=== PATIENT | female | born 1945 | race Caucasian/White ===

== ENCOUNTER 2022-09-14 17:12 | Emergency (ER) | payer MEDICARE, MEDICAID, SELFPAY ==
[2022-09-14] VITALS (30 sets, daily range): BP systolic 147–205; BP diastolic 70–96; PULSE 53–88; RESP 13–40; TEMP 36.3; O2SAT 93–100; BMI 23.1
--- NOTE | 2022-09-14 17:26 | DI.CT.S_ITS ---
PROCEDURE: CT HEAD/BRAIN WO CON INDICATIONS: headache, htn and loss vision in left eye one month ago. TECHNIQUE: Noncontrast 4.5 mm thick angled axial sections acquired from the foramen magnum to the vertex, with coronal and sagittal reformats. For radiation dose reduction, the following was used: automated exposure control, adjustment of mA and/or kV according to patient size. COMPARISON: None. FINDINGS: Image quality: Excellent. CSF spaces: Basal cisterns are patent. No extra-axial fluid collections. Ventricles are normal in size and shape. Brain: No midline shift. No intracranial masses or hemorrhage. Cherry-white matter interface is normal. Skull and face: Calvarium and visualized facial bones are intact, without suspicious lesions. Sinuses: Visualized sinuses and mastoids are clear. IMPRESSION: Atrophy and chronic ischemic change without hemorrhage or mass effect Increased irregular density in the left orbital globe may reflect vitreous hemorrhage, calcification or less likely mass lesion. Consider follow-up MR with contrast Approved by: Jose Hickey M.D. on 09/14/2022 at 17:49
[2022-09-14 18:04] LABS: Add Manual Diff / Slide Review NO; Basophils Absolute Auto 0 /uL (0-100); Basophils Percent Auto 0.3 % (0-2); Eosinophils Absolute Auto 0 /uL (0-450); Eosinophils Percent Auto 0.2 % (2-4); Hematocrit 40.3 % (36-46); Hemoglobin 13.9 g/dL (12.0-16.0); Lymphocytes Absolute Auto 600 /uL (1100-4500); Lymphocytes Percent Auto 5.7 % (25-40); Mean Corpuscular HGB Conc 34.4 % (30-36); Mean Corpuscular Hemoglobin 30.6 PG (26-34); Monocytes Absolute Auto 300 /uL (0-900); Neutrophils Absolute Auto 9000 /uL (1500-7000); Neutrophils Percent Auto 90.8 % (50-75); Platelet Count 400 X10^3/uL (150-400); Red Blood Cell Count 4.53 X10^6/uL (4.0-5.2); Red Cell Distribution Width 13.9 % (11.6-14.8); White Blood Cell Count 9.9 X10^3/uL (4.5-11.0)
--- NOTE | 2022-09-14 18:15 | ED_ITS ---
HPI - Headache General Chief Complaint: Headache Stated Complaint: Migraine Time Seen by Provider: 09/14/22 17:30 Source: patient Mode of arrival: Wheelchair Limitations: no limitations History of Present Illness HPI Narrative: This is a 76-year-old female with no reported medical issues but has not seen a doctor in many years, patient states she had slow onset of headache today started before 12 30 this morning she describes it as being above her left eye in the frontal area, does not radiate elsewhere. She does note she lost vision in her left eye about a month ago she states it is just lack she really has no vision at all. She states she sometimes has pretty colors in her right eye with her headache today. She denies syncope falls or trauma. She does wear glasses. She is not had prior vision issues. She will sort of tingling all over, she does not feel weak one-sided versus the other. No fevers or chills. No difficulty with speech. No chest pain, no shortness of breath she is had nausea but no vomiting, no diarrhea constipation. Patient states no vertigo. She does note she has chronic swelling in her lower extremities typically worse in the summer. She also has a spot on her arm that has been present ingrowing for some time sometimes bleeds. Related Data Home Medications Medication Instructions Recorded Confirmed No Known Home Medications 09/14/22 09/14/22 Allergies Allergy/AdvReac Type Severity Reaction Status Date / Time No Known Drug Allergies Allergy Verified 09/14/22 17:15 Review of Systems Review of Systems ROS Unobtainable: All systems reviewed & are unremarkable except as noted in HPI and below Patient History Social History Smoking Status: Never smoker Smoking Status: Never smoker Substance Use Type: does not use Exam Narrative Exam Narrative: GEN: Well-nourished elderly female, alert and oriented x 3, patient appears to be in moderate distress. HEENT: Atraumatic, pupils are equal round reactive to light, extraocular movements are intact, patient does not have any appreciation of light were fingers with left eye, nares are clear, TMs are clear with no fluid, there is no conjunctival pallor. Throat is clear without any exudates, erythema, tonsillar enlargement or uvular deviation, mild facial droop on the left. Visual acuity: right [20/20], left no vision without correction. IOP: Right 16 and 18 mm Hg on repeat, Left ERRor x 3 patient was very cooperative with exam. General: no globe trauma Eyelids: normal inspection. Conjunctiva/Sclera: normal inspection Corneas: normal inspection, examined with fluroscein on left, minimal uptake.. EOM: intact, no palsy/entrapment Pupils: PERRL on right, pupils are equal bilaterally I do not appreciate any reaction with direct examination with light on the left and a little difficult to tell but do not appreciate any reaction when light is shined in the right eye no reaction appreciated in the left. Anterior Chambers: normal inspection, no hypema HEART: Regular rate and rhythm without murmur, clicks, rubs. Pulses are equal in upper and lower extremities. Bilateral lower extremity edema. LUNGS:Lungs clear to auscultation, no wheezes, rales, crackles, chest moves symmetrically, no tachypnea accessory muscle use ABD:bowel sounds normal, soft, non-tender, no guarding, rebound, rigidity, no masses noted, no hepatosplenomegaly :No CVA tenderness MSCL: Non-tender, no muscle atrophy, muscles strength 5/5 upper and lower ex tremities, full range of motion. Patient has a 4 x 2 cm raised mass on her left forearm with mild amount of bleeding that is pinkish tissue slightly pedunculated NEURO:CN 2-12 intact, sensation normal, reflexes 2/4 upper and lower extremities. finger nose finger test normal, heel ogden test normal. Initial Vital Signs Initial Vital Signs: Vital Signs Temperature 97.3 F L 09/14/22 17:15 Pulse Rate 88 09/14/22 17:15 Respiratory Rate 18 09/14/22 17:15 Blood Pressure 205/96 H 09/14/22 17:15 Pulse Oximetry 100 09/14/22 17:15 Oxygen Delivery Method Room Air 09/14/22 17:15 Scores NIH Stroke Scale Level of Conciousness: Alert, keenly responsive Ask month/age: Answers both questions correctly. Open/close eyes, close hand: Performs both tasks correctly Best gaze horizontal: Normal Visual marvin: Complete hemianopia (left eye complete vision loss.) Facial palsy: Minor paralysis, flattened nasolabial fold, asymmetry on smiling Left arm drift: No drift for full 10 sec Right arm drift: No drift for full 10 sec Left leg drift: No drift for full 5 sec Right leg drift: No drift for full 5 sec Limb ataxia: Absent Sensory on face/arms/legs: Normal, no sensory loss Best language: No aphasia, normal Dysarthria: Normal Extinction or inattention: No abnormality Total NIH Stroke scale score: 3 Course Orders Ordered: ED Orders 09/14/22 16:57 COVID19 -Nasal RAPID Stat 09/14/22 17:26 CT head/brain wo con Stat 09/14/22 17:53 Complete Blood Count AUTO DIFF Stat 09/14/22 18:00 EKG-12 Lead Stat 09/14/22 18:08 Comprehensive Metabolic Panel Stat Lipase Stat Magnesium Stat NT-proBNP (BNP-Adult 18+) Stat PTT Partial Thromboplastin Gabriel Stat Prothrombin Time INR Stat Troponin & CK Cardiac Panel Stat 09/14/22 18:29 Chest [XR chest 1V] Stat 09/14/22 18:53 MR head/brain w con Stat 09/14/22 19:58 CT orbit BI wo con Stat 09/14/22 21:37 UA Complete [Urinalysis and Microscopic] Stat Urine Culture Stat Urine Drug Screen, Rapid Stat Brimonidine Tartrate (Brimonidine 0.2% Ophth 5 Ml) 1 drops EYE-LEFT Q3HR [facility] Last Admin: 09/14/22 22:36 Dose: 1 drops Documented By: Admin: 09/14/22 22:01 Dose: 1 drops Documented By: Admin: 09/14/22 20:52 Dose: 1 drops Documented By: Dorzolamide/Timolol (Dorzolamide/Timolol Ophth 10 Ml) 1 drops EYE-LEFT BID [facility] Last Admin: 09/14/22 22:13 Dose: 1 drops Documented By: Admin: 09/14/22 21:18 Dose: 1 drops Documented By: Admin: 09/14/22 20:43 Dose: 1 drops Documented By: Latanoprost (Latanoprost 0.005% Ophth 2.5 Ml) 1 drops EYE-LEFT BEDTIME [facility] Last Admin: 09/14/22 22:24 Dose: 1 drops Documented By: Admin: 09/14/22 21:39 Dose: 1 drops Documented By: Admin: 09/14/22 20:30 Dose: 1 drops Documented By: Discontinued Medications Acetazolamide (Acetazolamide 250 Mg Tablet) 500 mg PO NOW ONE Stop: 09/14/22 20:02 Last Admin: 09/14/22 20:30 Dose: 500 mg Documented By: Brimonidine Tartrate (Brimonidine 0.2% Ophth 5 Ml) 1 drops EYE-BOTH Q3HR [facility] Fluorescein Sodium (Fluorescein 1 Mg Strip) 1 mg EYE-BOTH NOW ONE Stop: 09/14/22 19:33 Last Admin: 09/14/22 19:44 Dose: 1 mg Documented By: Metoclopramide HCl (Metoclopramide 10 Mg/2 Ml Inj) 10 mg IV NOW ONE Stop: 09/14/22 19:20 Last Admin: 09/14/22 19:25 Dose: 10 mg Documented By: RLS Morphine Sulfate (Morphine 4 Mg/Ml Inj) 4 mg IV NOW ONE Stop: 09/14/22 18:30 Last Admin: 09/14/22 18:35 Dose: 4 mg Documented By: SPF Morphine Sulfate (Morphine 4 Mg/Ml Inj) 4 mg IV NOW ONE Stop: 09/14/22 19:54 Last Admin: 09/14/22 19:58 Dose: 4 mg Documented By: Ondansetron HCl (Ondansetron 4 Mg Odt) 4 mg PO NOW ONE Stop: 09/14/22 17:51 Last Admin: 09/14/22 18:18 Dose: 4 mg Documented By: SPF Ondansetron HCl (Ondansetron 4 Mg/2 Ml Inj) 4 mg IV NOW ONE Stop: 09/14/22 18:29 Last Admin: 09/14/22 18:36 Dose: 4 mg Documented By: SPF Proparacaine HCl (Proparacaine 0.5% Ophth [place]) 1 drops EYE-BOTH NOW ONE Stop: 09/14/22 19:33 Last Admin: 09/14/22 19:44 Dose: 1 drop Documented By: Vital Signs Vital signs: Vital Signs - 8 hr 09/14/22 17:15 09/14/22 17:57 09/14/22 17:57 Temperature 97.3 F L Pulse Rate 88 79 Respiratory Rate 18 40 H Blood Pressure 205/96 H 183/88 H Pulse Oximetry 100 99 Oxygen Delivery Method Room Air 09/14/22 18:00 09/14/22 18:00 09/14/22 18:15 Temperature Pulse Rate 77 77 Respiratory Rate 28 H Blood Pressure 181/94 H Pulse Oximetry 98 100 Oxygen Delivery Method Room Air 09/14/22 18:30 09/14/22 18:30 09/14/22 18:45 Temperature Pulse Rate 78 80 Respiratory Rate 28 H Blood Pressure 204/93 H Pulse Oximetry 99 100 Oxygen Delivery Method 09/14/22 18:52 09/14/22 18:52 09/14/22 19:00 Temperature Pulse Rate 72 Respiratory Rate 26 H Blood Pressure 198/85 H 178/85 H Pulse Oximetry 99 Oxygen Delivery Method 09/14/22 19:00 09/14/22 19:15 09/14/22 19:30 Temperature Pulse Rate 72 70 Respiratory Rate 24 Blood Pressure 172/83 H Pulse Oximetry 99 98 Oxygen Delivery Method Room Air 09/14/22 19:30 09/14/22 19:45 09/14/22 20:00 Temperature Pulse Rate 68 66 Respiratory Rate 13 Blood Pressure 182/78 H Pulse Oximetry 97 98 Oxygen Delivery Method 09/14/22 20:00 09/14/22 20:17 09/14/22 20:18 Temperature Pulse Rate 73 72 Respiratory Rate 13 Blood Pressure 167/87 H Pulse Oximetry 96 Oxygen Delivery Method 09/14/22 20:18 09/14/22 20:30 09/14/22 20:45 Temperature Pulse Rate 69 67 69 Respiratory Rate 19 23 22 Blood Pressure Pulse Oximetry 93 95 95 Oxygen Delivery Method 09/14/22 21:00 09/14/22 21:15 09/14/22 21:36 Temperature Pulse Rate 67 73 77 Respiratory Rate 15 Blood Pressure Pulse Oximetry 96 97 99 Oxygen Delivery Method 09/14/22 21:37 09/14/22 21:37 09/14/22 21:45 Temperature Pulse Rate 64 62 Respiratory Rate 16 Blood Pressure 193/78 H Pulse Oximetry 97 97 Oxygen Delivery Method 09/14/22 22:00 09/14/22 22:01 09/14/22 22:01 Temperature Pulse Rate 62 61 Respiratory Rate Blood Pressure 191/81 H Pulse Oximetry 97 95 Oxygen Delivery Method 09/14/22 22:15 09/14/22 22:30 09/14/22 22:31 Temperature Pulse Rate 64 59 L Respiratory Rate 17 19 Blood Pressure 171/78 H Pulse Oximetry 96 95 Oxygen Delivery Method 09/14/22 22:31 09/14/22 22:45 09/14/22 23:00 Temperature Pulse Rate 64 57 L 61 Respiratory Rate 24 24 Blood Pressure Pulse Oximetry 95 95 95 Oxygen Delivery Method 09/14/22 23:01 09/14/22 23:01 09/14/22 23:15 Temperature Pulse Rate 57 L 53 L Respiratory Rate Blood Pressure 147/70 H Pulse Oximetry 96 95 Oxygen Delivery Method MDM - Headache Lab Data 09/14/22 17:53 09/14/22 18:08 Labs: Lab Results 09/14/22 09/14/22 09/14/22 Range/Units 16:57 17:53 18:08 WBC 9.9 (4.5-11.0) X10^3/uL RBC 4.53 (4.0-5.2) X10^6/uL Hgb 13.9 (12.0-16.0) g/dL Hct 40.3 (36-46) % MCV 89.0 (80-100) fL MCH 30.6 (26-34) PG MCHC 34.4 (30-36) % RDW 13.9 (11.6-14.8) % Plt Count 400 (150-400) X10^3/uL Neut % (Auto) 90.8 H (50-75) % Lymph % (Auto) 5.7 L (25-40) % [place] % (Auto) 3.0 (3-14) % Eos % (Auto) 0.2 L (2-4) % Baso % (Auto) 0.3 (0-2) % Neut # (Auto) 9000 H (0175-6287) /uL Lymph # (Auto) 600 L (6039-6079) /uL [place] # (Auto) 300 (0-900) /uL Eos # (Auto) 0 (0-450) /uL Baso # (Auto) 0 (0-100) /uL PT 12.7 (10.1-12.7) SECONDS INR 1.1 (0.9-1.3) APTT 30 (26-36) SECONDS Sodium (137-145) mmol/L Potassium (3.4-5.1) mmol/L Chloride (98-107) mmol/L Carbon Dioxide (22-32) mmol/L BUN (7-17) mg/dL Creatinine (0.52-1.04) mg/dL Estimated GFR (>60) mL/min BUN/Creatinine Ratio (6-22) Glucose (80-110) mg/dL Calcium (8.4-10.2) mg/dL Magnesium (1.6-2.3) mg/dL Total Bilirubin (0.2-1.3) mg/dL AST (14-36) IU/L ALT (<35) IU/L Alkaline Phosphatase (38-126) U/L Total Creatine Kinase (30-135) U/L Troponin I (0.01-0.034) ng/mL NT-Pro-B Natriuret Pep (<125) pg/mL Total Protein (6.3-8.2) g/dL Albumin (3.5-5.0) g/dL Globulin (1.7-4.1) g/dL Albumin/Globulin Ratio (1.0-2.8) Lipase (23-300) U/L Urine Color Urine Appearance Urine pH (4.5-8.0) Ur Specific Rhodes (1.000-1.035) Urine Protein (Negative) Urine Glucose (UA) (Negative) g/dL Urine Ketones (NEGATIVE) Urine Occult Blood (Negative) Urine Nitrate (Negative) Urine Bilirubin (NEGATIVE) Urine Urobilinogen (0.2) E.U./dL Ur Leukocyte Esterase (NEGATIVE) Urine RBC (0-5/HPF) Urine WBC (0-5/HPF) Ur Squamous Epith Cells (0-5/HPF) Urine Bacteria (None) Ur Culture Indicated? U Opiates 300ng/mL cut (Negative) Ur Oxycodone Screen (Negative) Urine Methadone Screen (Negative) Ur Barbiturates Screen (Negative) U Tricyclic Antidepress (Negative) Ur Phencyclidine Scrn (Negative) Ur Amphetamines Screen (Negative) U Methamphetamines Scrn (Negative) Ur MDMA Scrn (Ecstasy) (Negative) U Benzodiazepines Scrn (Negative) Urine Cocaine Screen (Negative) U Marijuana (THC) Screen (Negative) SARS-CoV-2 (PCR) Negative (Negative) 09/14/22 09/14/22 09/14/22 Range/Units 18:08 18:08 21:37 WBC (4.5-11.0) X10^3/uL RBC (4.0-5.2) X10^6/uL Hgb (12.0-16.0) g/dL Hct (36-46) % MCV (80-100) fL MCH (26-34) PG MCHC (30-36) % RDW (11.6-14.8) % Plt Count (150-400) X10^3/uL Neut % (Auto) (50-75) % Lymph % (Auto) (25-40) % [place] % (Auto) (3-14) % Eos % (Auto) (2-4) % Baso % (Auto) (0-2) % Neut # (Auto) (4219-8118) /uL Lymph # (Auto) (1445-2846) /uL [place] # (Auto) (0-900) /uL Eos # (Auto) (0-450) /uL Baso # (Auto) (0-100) /uL PT (10.1-12.7) SECONDS INR (0.9-1.3) APTT (26-36) SECONDS Sodium 132 L (137-145) mmol/L Potassium 3.6 (3.4-5.1) mmol/L Chloride 98 (98-107) mmol/L Carbon Dioxide 22 (22-32) mmol/L BUN 20 H (7-17) mg/dL Creatinine 0.52 (0.52-1.04) mg/dL Estimated GFR > 60 (>60) mL/min BUN/Creatinine Ratio 38.5 H (6-22) Glucose 151 H (80-110) mg/dL Calcium 9.3 (8.4-10.2) mg/dL Magnesium 1.7 (1.6-2.3) mg/dL Total Bilirubin 0.7 (0.2-1.3) mg/dL AST 22 (14-36) IU/L ALT 19 (<35) IU/L Alkaline Phosphatase 130 H (38-126) U/L Total Creatine Kinase 43 (30-135) U/L Troponin I < 0.012 (0.01-0.034) ng/mL NT-Pro-B Natriuret Pep 309 H (<125) pg/mL Total Protein 7.9 (6.3-8.2) g/dL Albumin 4.4 (3.5-5.0) g/dL Globulin 3.5 (1.7-4.1) g/dL Albumin/Globulin Ratio 1.3 (1.0-2.8) Lipase 78 (23-300) U/L Urine Color Urine Appearance Urine pH (4.5-8.0) Ur Specific [place] (1.000-1.035) Urine Protein (Negative) Urine Glucose (UA) (Negative) g/dL Urine Ketones (NEGATIVE) Urine Occult Blood (Negative) Urine Nitrate (Negative) Urine Bilirubin (NEGATIVE) Urine Urobilinogen (0.2) E.U./dL Ur Leukocyte Esterase (NEGATIVE) Urine RBC (0-5/HPF) Urine WBC (0-5/HPF) Ur Squamous Epith Cells (0-5/HPF) Urine Bacteria (None) Ur Culture Indicated? U Opiates 300ng/mL cut Positive H (Negative) Ur Oxycodone Screen Negative (Negative) Urine Methadone Screen Negative (Negative) Ur Barbiturates Screen Negative (Negative) U Tricyclic Antidepress Negative (Negative) Ur Phencyclidine Scrn Negative (Negative) Ur Amphetamines Screen Negative (Negative) U Methamphetamines Scrn Negative (Negative) Ur MDMA Scrn (Ecstasy) Negative (Negative) U Benzodiazepines Scrn Negative (Negative) Urine Cocaine Screen Negative (Negative) U Marijuana (THC) Screen Negative (Negative) SARS-CoV-2 (PCR) (Negative) 09/14/22 Range/Units 21:37 WBC (4.5-11.0) X10^3/uL RBC (4.0-5.2) X10^6/uL Hgb (12.0-16.0) g/dL Hct (36-46) % MCV (80-100) fL MCH (26-34) PG MCHC (30-36) % RDW (11.6-14.8) % Plt Count (150-400) X10^3/uL Neut % (Auto) (50-75) % Lymph % (Auto) (25-40) % [place] % (Auto) (3-14) % Eos % (Auto) (2-4) % Baso % (Auto) (0-2) % Neut # (Auto) (0455-0104) /uL Lymph # (Auto) (1122-1214) /uL [place] # (Auto) (0-900) /uL Eos # (Auto) (0-450) /uL Baso # (Auto) (0-100) /uL PT (10.1-12.7) SECONDS INR (0.9-1.3) APTT (26-36) SECONDS Sodium (137-145) mmol/L Potassium (3.4-5.1) mmol/L Chloride (98-107) mmol/L Carbon Dioxide (22-32) mmol/L BUN (7-17) mg/dL Creatinine (0.52-1.04) mg/dL Estimated GFR (>60) mL/min BUN/Creatinine Ratio (6-22) Glucose (80-110) mg/dL Calcium (8.4-10.2) mg/dL Magnesium (1.6-2.3) mg/dL Total Bilirubin (0.2-1.3) mg/dL AST (14-36) IU/L ALT (<35) IU/L Alkaline Phosphatase (38-126) U/L Total Creatine Kinase (30-135) U/L Troponin I (0.01-0.034) ng/mL NT-Pro-B Natriuret Pep (<125) pg/mL Total Protein (6.3-8.2) g/dL Albumin (3.5-5.0) g/dL Globulin (1.7-4.1) g/dL Albumin/Globulin Ratio (1.0-2.8) Lipase (23-300) U/L Urine Color Yellow Urine Appearance Cloudy Urine pH 6.5 (4.5-8.0) Ur Specific [place] 1.025 (1.000-1.035) Urine Protein Trace H (Negative) Urine Glucose (UA) Negative (Negative) g/dL Urine Ketones 2+ H (NEGATIVE) Urine Occult Blood 3+ H (Negative) Urine Nitrate Positive H (Negative) Urine Bilirubin Negative (NEGATIVE) Urine Urobilinogen 0.2 (0.2) E.U./dL Ur Leukocyte Esterase Negative (NEGATIVE) Urine RBC 5-10/hpf H (0-5/HPF) Urine WBC 1-5/hpf (0-5/HPF) Ur Squamous Epith Cells 0-1 /hpf (0-5/HPF) Urine Bacteria Many (>30) H (None) Ur Culture Indicated? Specimen cultured U Opiates 300ng/mL cut (Negative) Ur Oxycodone Screen (Negative) Urine Methadone Screen (Negative) Ur Barbiturates Screen (Negative) U Tricyclic Antidepress (Negative) Ur Phencyclidine Scrn (Negative) Ur Amphetamines Screen (Negative) U Methamphetamines Scrn (Negative) Ur MDMA Scrn (Ecstasy) (Negative) U Benzodiazepines Scrn (Negative) Urine Cocaine Screen (Negative) U Marijuana (THC) Screen (Negative) SARS-CoV-2 (PCR) (Negative) Imaging Data CT scan - head: Radiologist's Impression: [address] [address] [address] Scan Report Signed Patient: Brandi Alvarez MR#: [id number] : 1945 Acct:[id number] Age/Sex: 76 / F Date of Service: 09/14/22 Loc: ED Accession Number: [id number] ?? Procedure: CT head/brain wo con Ordering Provider: Lior Patterson D.O. PROCEDURE:? CT HEAD/BRAIN WO CON ? INDICATIONS:? headache, htn and loss vision in left eye one month ago. ? TECHNIQUE:? Noncontrast 4.5 mm thick angled axial sections acquired from the foramen magnum to the vertex, with coronal and sagittal reformats.? For radiation dose reduction, the following was used:? automated exposure control, adjustment of mA and/or kV according to patient size.? ? COMPARISON:? None. ? FINDINGS:? Image quality:? Excellent.? ? CSF spaces:? Basal cisterns are patent.? No extra-axial fluid collections.? Ventricles are normal in size and shape.? ? Brain:? No midline shift.? No intracranial masses or hemorrhage.? Cherry-white matter interface is normal.? ? Skull and face:? Calvarium and visualized facial bones are intact, without suspicious lesions.? ? Sinuses:? Visualized sinuses and mastoids are clear.? ? IMPRESSION:? Atrophy and chronic ischemic change without hemorrhage or mass effect ? Increased irregular density in the left orbital globe may reflect vitreous hemorrhage, calcification or less likely mass lesion.? Consider follow-up MR with contrast ? ? ? Approved by: Jose Hickey M.D. on 09/14/2022 at 17:49? CT orbits: Radiologist's Impression: Close Orbit CT (Signed) Radha Christensen - 09/14/22 Chest X-Ray (Signed) Jose Hickey - 09/14/[address] (Signed) Jose Hickey - 09/14/22 Launch?Image [address] [address] [address] Scan Report Signed Patient: Brandi Alvarez MR#: [id number] : 1945 Acct:[id number] Age/Sex: 76 / F Date of Service: 09/14/22 Loc: ED Accession Number: [id number] ?? Procedure: CT orbit BI wo con Ordering Provider: Jaye Payton D.O. PROCEDURE:? CT ORBIT BI WO CON ? INDICATIONS:? left eye ? TECHNIQUE:? Noncontrast 2.5 mm axial images acquired through the orbits, with coronal and sagittal reformats.? For radiation dose reduction, the following was used:? automated exposure control, adjustment of mA and/or kV according to patient size.? ? COMPARISON:? [facility], CT, CT HEAD/BRAIN WO CON, 09/14/2022, 17:39. ? FINDINGS:? Image quality:? Excellent.? ? Orbits:? As identified on prior exam, the left globe demonstrates a somewhat heterogeneous appearance with focus increased density in the posterior aspect.? There is no proptosis.? Lenses unchanged in position.? No metallic foreign bodies.? The optic nerves are normal in size.? No retrobulbar masses or fat abnormalities.? The extra-ocular muscles are normal and symmetrical in appearance.? Lacrimal glands are normal in size.? Optic chiasm is normal.? ? Intracranial:? Visualized portions of the cerebral hemispheres, brainstem, and spinal cord are normal.? ? Bones and sinuses:? Visualized calvarium and facial bones appear intact.? Visualized sinuses and mastoids are clear.? ? IMPRESSION:? ? Unchanged appearance of hyperdensity within the left globe as above.? Differential remains unchanged at possible vitreous hemorrhage, calcification or less likely mass lesion. ? ? Dictated by: Radha Christensen M.D. on 09/14/2022 at 20:34 ? ? Approved by: Radha Christensen M.D. on 09/14/2022 at 20:35?? ECG Data Attestation: I personally reviewed and interpreted this ECG as follows: Prior ECG tracings: not available for review Interpretation: Sinus rhythm rate of 78 IA 142 QRS 84 and QTC 476. No acute ST changes. MDM Narrative Medical decision making narrative: 76-year-old female with history of 1 day of acute but gradual onset left frontal headache nausea and vomiting with 1 month of left eye vision loss that she describes as initially gradual onset but complete loss she describes it being mostly black. She occasionally has some flashes of color but no real light perception. Patient states no trauma no injuries, no pain in the eye is reported. She has not been having frequent headaches. CT of the head does show possible bleed versus mass or calcification there is some additional concern for mass by myself as patient has a large lesion on her left forearm that appears to be form of skin cancer. On exam is 20/20 with vision on the right. no vision perception on the left even with confrontation. Intra-ocular pressures are 16 and 18 on repeat exam on the right and air 3 times on the left with patient actu ally giving a very easy exam. Spoke with ophthalmology through [facility], they recommend transfer for evaluation, asked for CT orbits of the eyes without contrast to be done here and sent for further evaluation and recommend dorzolamide/timolol, bromocriptine, latanoprost drops Q 5 minutes x3 for for improvement of pain as well Diamox 500 mg IV if able otherwise p.o. would be adequate. They do not require repeat pressure at this time as patient has complete loss of vision and more for patient comfort and asked for ED to ED transfer. I spoke with Dr. Simmons for Ophthalmology who is the accepting physician at [facility]. Patient did have some improvement of discomfort she still has some pain but appears visibly more comfortable than before. Patient defers any additional pain or antinausea medications currently. CT orbits shows unhanged appearance of hyperdensity within left globe, differential continues to be the same. Updated patient and family who are agreeable for transfer. Critical Care Time Critical Care Time Critical Care Time: Yes Total Critical Care Time: 35 Attestation: The high probability of a clinically significant, sudden or life threatening deterioration of the [] system(s) required my full and direct attention, intervention and personal management. The aggregate critical care time was [] minutes. This time is in addition to time spent performing reported procedures but includes the following: [x] Data Review and interpretation [x] Patient assessment and monitoring of vital signs [x] Documentation [x] Medication orders and management Discharge Plan Departure Patient Disposition: [facility] Clinical Impression: Headache, Vision loss of left eye, Mass of arm Prescriptions: No Action No Known Home Medications
[2022-09-14] MEDS: ONDANSETRON 4 MG ODT PO (18:18)
[2022-09-14 18:24] LABS: COVID19 -Nasal RAPID Negative (Negative)
--- NOTE | 2022-09-14 18:29 | DI.RAD.S_ITS ---
PROCEDURE: XR CHEST 1V INDICATIONS: headache, nausea, Left eye vision loss TECHNIQUE: One view of the chest was acquired. COMPARISON: None. FINDINGS: Surgical changes and devices: None. Lungs and pleura: Lungs are clear. No pleural effusions or pneumothorax. Mediastinum: Mediastinal contours appear normal. Heart size is normal. Bones and chest wall: No suspicious bony lesions. Overlying soft tissues appear unremarkable. IMPRESSION: No acute cardiopulmonary findings Approved by: Jose Hickey M.D. on 09/14/2022 at 17:57
[2022-09-14 18:34] LABS: Alanine Aminotransferase 19 IU/L (<35); Albumin 4.4 g/dL (3.5-5.0); Albumin Globulin Ratio 1.3 (1.0-2.8); Alkaline Phosphatase 130 U/L (38-126); Aspartate Aminotransferase 22 IU/L (14-36); BUN Creatinine Ratio 38.5 (6-22); Bilirubin Total 0.7 mg/dL (0.2-1.3); Blood Urea Nitrogen 20 mg/dL (7-17); Calcium 9.3 mg/dL (8.4-10.2); Carbon Dioxide 22 mmol/L (22-32); Chloride 98 mmol/L (98-107); Creatine Kinase 43 U/L (30-135); Estimated Glomerular Filt Rate > 60 mL/min (>60); Globulin 3.5 g/dL (1.7-4.1); Glucose 151 mg/dL (80-110); HEMOLYSIS < 15 (0-50); Lipase 78 U/L (23-300); Magnesium 1.7 mg/dL (1.6-2.3); Potassium 3.6 mmol/L (3.4-5.1); Sodium 132 mmol/L (137-145); Total Protein 7.9 g/dL (6.3-8.2)
[2022-09-14] MEDS: MORPHINE 4 MG/ML INJ IV ×2 (18:35→19:58)
[2022-09-14] MEDS: ONDANSETRON 4 MG/2 ML INJ IV (18:36)
[2022-09-14 18:41] LABS: INR 1.1 (0.9-1.3); PTT Partial Thromboplastin Tim 30 SECONDS (26-36); Prothrombin Time 12.7 SECONDS (10.1-12.7)
[2022-09-14 18:43] LABS: NT-proBNP (BNP-Adult 18+) 309 pg/mL (<125)
[2022-09-14 18:46] LABS: Troponin I < 0.012 ng/mL (0.01-0.034)
[2022-09-14] MEDS: METOCLOPRAMIDE 10 MG/2 ML INJ IV (19:25)
[2022-09-14] MEDS: FLUORESCEIN 1 MG STRIP EYE-BOTH (19:44)
[2022-09-14] MEDS: PROPARACAINE 0.5% OPHTH SOL 1 DROPS EYE-BOTH (19:44)
--- NOTE | 2022-09-14 19:58 | DI.CT.S_ITS ---
PROCEDURE: CT ORBIT BI WO CON INDICATIONS: left eye TECHNIQUE: Noncontrast 2.5 mm axial images acquired through the orbits, with coronal and sagittal reformats. For radiation dose reduction, the following was used: automated exposure control, adjustment of mA and/or kV according to patient size. COMPARISON: [facility], CT, CT HEAD/BRAIN WO CON, 09/14/2022, 17:39. FINDINGS: Image quality: Excellent. Orbits: As identified on prior exam, the left globe demonstrates a somewhat heterogeneous appearance with focus increased density in the posterior aspect. There is no proptosis. Lenses unchanged in position. No metallic foreign bodies. The optic nerves are normal in size. No retrobulbar masses or fat abnormalities. The extra-ocular muscles are normal and symmetrical in appearance. Lacrimal glands are normal in size. Optic chiasm is normal. Intracranial: Visualized portions of the cerebral hemispheres, brainstem, and spinal cord are normal. Bones and sinuses: Visualized calvarium and facial bones appear intact. Visualized sinuses and mastoids are clear. IMPRESSION: Unchanged appearance of hyperdensity within the left globe as above. Differential remains unchanged at possible vitreous hemorrhage, calcification or less likely mass lesion. Dictated by: Radha Christensen M.D. on 09/14/2022 at 20:34 Approved by: Radha Christensen M.D. on 09/14/2022 at 20:35
[2022-09-14] MEDS: LATANOPROST 0.005% OPHTH 2.5 ML 1 DROPS EYE-LEFT ×3 (20:30→22:24)
[2022-09-14] MEDS: acetaZOLAMIDE 250 MG TABLET 500 MG PO (20:30)
[2022-09-14] MEDS: DORZOLAMIDE/TIMOLOL OPHTH 10 ML 1 DROPS EYE-LEFT ×3 (20:43→22:13)
[2022-09-14] MEDS: BRIMONIDINE 0.2% OPHTH 5 ML 1 DROPS EYE-LEFT ×3 (20:52→22:36)
[2022-09-14 21:45] LABS: Appearance Urine UA CLOUDY; Bilirubin Urine UA NEGATIVE (NEGATIVE); Color Urine UA YELLOW; Glucose Urine UA NEGATIVE (Negative); Ketones Urine UA 2+ (NEGATIVE); Leukocyte Esterase Urine UA NEGATIVE (NEGATIVE); Nitrite Urine UA POSITIVE (Negative); Occult Blood Urine UA 3+ (Negative); Protein Urine UA TRACE (Negative); Specific Gravity Urine UA 1.025 (1.000-1.035); Urobilinogen Urine UA 0.2 E.U./dL (0.2)
[2022-09-14 21:46] LABS: pH Urine UA 6.5 (4.5-8.0)
[2022-09-14 21:51] LABS: UR Morphine/Opiate cutoff 300 Positive (Negative); Ur Creatinine Normal (Normal); Ur Specific Gravity Normal (Normal); Urine Amphetamines Negative (Negative); Urine Barbiturates Negative (Negative); Urine Benzodiazepines Negative (Negative); Urine Cocaine Negative (Negative); Urine MDMA Negative (Negative); Urine Methadone Negative (Negative); Urine Methamphetamines Negative (Negative); Urine Oxycodone Negative (Negative); Urine Phencyclidine Negative (Negative); Urine Tetrahydrocannabinol Negative (Negative); Urine Tricyclic Antidepressant Negative (Negative); Urine pH Normal (Normal)
[2022-09-14 21:55] LABS: RBC Urine 5-10/HPF (0-5/HPF); WBC Urine 1-5/HPF (0-5/HPF)
[2022-09-14 21:56] LABS: Bacteria Urine Many (>30); Culture Indicated Urine Specimen Cultured; Squamous Epithelial Cell Urine 0-1 /HPF (0-5/HPF)
== END 2022-09-14 23:31 | disposition short-term general hospital (02) ==
PROVIDERS: Emergency Medicine; Emergency Provider Emergency Medicine
DX: H54.62 Unqualified visual loss, left eye, normal vision right eye (principal); R51.9 Headache, unspecified; R11.2 Nausea with vomiting, unspecified; R29.703 NIHSS score 3; Z20.822 Contact with and (suspected) exposure to COVID-19; R22.30 Localized swelling, mass and lump, unspecified upper limb
CPT/HCPCS: 36415; 70450; 70480; 71045; 80053; 80305; 81001; 82550; 83690; 83735; 83880; 84484; 85025; 85610; 85730; 87077; 87086; 87186; 87635; 93005; 96374; 96375; 96376; 99285; 99291; C9803; J2270; J2405; J2765

== ENCOUNTER 2023-03-27 01:22 | Emergency (ER) | payer MEDICARE, MEDICAID, SELFPAY ==
[2023-03-27 01:34] VITALS: BP 230/96; PULSE 73; PULSE 88; RESP 17; TEMP 36.4; O2SAT 94; O2SAT 97; BMI 26.0
[2023-03-27 01:43] VITALS: PULSE 66; RESP 21; O2SAT 94
[2023-03-27 01:45] VITALS: BP 210/88
--- NOTE | 2023-03-27 01:47 | ED.GENADULT ---
HPI - General Adult General Chief complaint: Abdominal Pain Stated complaint: something stuck in throat Time Seen by Provider: 03/27/23 01:26 Source: patient and family Mode of arrival: Wheelchair History of Present Illness HPI narrative: Patient is a 77-year-old female. No history of reflux disease. No prior history of esophageal foreign body. States this evening she was eating some grapes and a tangerine when she felt like something got stuck in her throat. She has not had any problems breathing. She is able to swallow. She actually tried to eat things before coming in to include a muffin and drink some soda. She states that all of that was going past but she feels like something is stuck in her throat. She has not had any vomiting. Related Data Home Medications Medication Instructions Recorded Confirmed No Known Home Medications 09/14/22 09/14/22 Allergies Allergy/AdvReac Type Severity Reaction Status Date / Time No Known Drug Allergies Allergy Verified 09/14/22 17:15 Review of Systems Constitutional Constitutional: Reports system reviewed and no additional complaints, except as documented ENT Ears, Nose, Mouth, and Throat: Reports system reviewed and no additional complaints, except as documented Respiratory Respiratory: Reports system reviewed and no additional complaints, except as documented Gastrointestinal Gastrointestinal: Reports system reviewed and no additional complaints, except as documented Patient History Social History Smoking Status: Never smoker Smoking Status: Never smoker Substance Use Type: does not use Exam Initial Vital Signs Initial Vital Signs: Vital Signs Temperature 97.5 F L 03/27/23 01:34 Pulse Rate 88 03/27/23 01:34 Respiratory Rate 17 03/27/23 01:34 Blood Pressure 230/96 H 03/27/23 01:34 Pulse Oximetry 97 03/27/23 01:34 Oxygen Delivery Method Room Air 03/27/23 01:34 HENMT Head: normal to inspection and normocephalic Resp Effort & Inspection: normal respiratory effort Auscultation: clear to auscultation bilaterally Course Orders Ordered: Discontinued Medications Al Hydrox/Mg Hydrox/Simethicone 20 ml/ Lidocaine HCl 15 ml 0 ml PO NOW ONE Stop: 03/27/23 01:46 Last Admin: 03/27/23 01:53 Dose: 35 ml Glucagon (Glucagon,Human Recombinant 1 Mg/Ml Vial) 1 mg IV NOW ONE Stop: 03/27/23 01:46 Last Admin: 03/27/23 01:54 Dose: 1 mg Vital Signs Vital signs: Vital Signs - 8 hr 03/27/23 01:34 03/27/23 01:34 03/27/23 01:43 Temperature 97.5 F L Pulse Rate 88 73 66 Respiratory Rate 17 21 Blood Pressure 230/96 H Pulse Oximetry 97 94 94 Oxygen Delivery Method Room Air Room Air 03/27/23 01:45 03/27/23 01:54 Temperature Pulse Rate 71 Respiratory Rate Blood Pressure 210/88 H Pulse Oximetry 98 Oxygen Delivery Method Room Air Medical Decision Making MDM Narrative Medical decision making narrative: No respiratory distress. Is tolerating oral intake. Received glucagon and a GI cocktail. The GI cocktail did numb her mouth and throat but she felt like something was still stuck in the area. Was able to drink some fluids and also eat some pudding. There is a possibility of a foreign body however it is certainly not occlusive. Low suspicion that she has aspirated anything. There was also the possibility of scratching the esophagus that is causing her symptoms as well. There was no indication for an acute surgical consultation does she is tolerating oral intake. Advised that she eat a soft diet. She was given contact information for General surgery as she may benefit from a upper endoscopy. Discharge patient home with return precautions. She expressed understanding and agreement. Discharge Plan Departure Patient Disposition: Home Clinical Impression: Food impaction of esophagus Activity Restrictions/Additional Instructions: There is a very high chance that your symptoms will resolve over the next 24 hours. Until then I do recommend soft foods however you can advance her diet as tolerated. Recommend that you contact the general surgery department in the number provided below for a follow-up to discuss the indications for a upper endoscopy. Return to the emergency department for new symptoms. Prescriptions: No Action No Known Home Medications Referrals: Taz Fowler MD [Physician] - Stand Alone Forms: Patient Portal/API
[2023-03-27] MEDS: MAG HYDROX/ALUMINUM/SIMETH SUS 20 ML, LIDOCAINE VISCOUS 2% 15 ML PO (01:53)
[2023-03-27 01:54] VITALS: PULSE 71; O2SAT 98
[2023-03-27] MEDS: GLUCAGON,HUMAN RECOMBINANT 1 MG/ML VIAL IV (01:54)
[2023-03-27 03:01] VITALS: BP 223/98; PULSE 78; O2SAT 98
[2023-03-27 03:10] VITALS: BP 185/88; PULSE 81; RESP 20; O2SAT 99
== END 2023-03-27 03:10 | disposition home or self-care (01) ==
PROVIDERS: Emergency Provider Emergency Medicine
DX: T18.128A Food in esophagus causing other injury, initial encounter (principal)
CPT/HCPCS: 96374; 99284; J1610

== ENCOUNTER → 2023-05-21 14:17 | Outpatient (CLI) | payer MEDICARE, MEDICAID, SELFPAY ==
[2023-05-21 15:38] LABS: Add Manual Diff / Slide Review NO; Basophils Absolute Auto 100 /uL (0-100); Basophils Percent Auto 0.8 % (0-2); Eosinophils Absolute Auto 200 /uL (0-450); Hemoglobin 13.6 g/dL (12.0-16.0); Lymphocytes Absolute Auto 1000 /uL (1100-4500); Lymphocytes Percent Auto 10.6 % (25-40); Mean Corpuscular HGB Conc 33.9 % (30-36); Mean Corpuscular Hemoglobin 30.8 PG (26-34); Mean Corpuscular Volume 90.8 fL (80-100); Monocytes Absolute Auto 600 /uL (0-900); Monocytes Percent Auto 6.6 % (3-14); Neutrophils Absolute Auto 7400 /uL (1500-7000); Platelet Count 459 X10^3/uL (150-400); Red Blood Cell Count 4.41 X10^6/uL (4.0-5.2); Red Cell Distribution Width 13.7 % (11.6-14.8); White Blood Cell Count 9.2 X10^3/uL (4.5-11.0)
[2023-05-21 15:53] LABS: Alanine Aminotransferase 17 IU/L (<35); Albumin 4.2 g/dL (3.5-5.0); Albumin Globulin Ratio 1.3 (1.0-2.8); Alkaline Phosphatase 120 U/L (38-126); Aspartate Aminotransferase 21 IU/L (14-36); BUN Creatinine Ratio 22.2 (6-22); Bilirubin Total 0.8 mg/dL (0.2-1.3); Blood Urea Nitrogen 16 mg/dL (7-17); Calcium 9.9 mg/dL (8.4-10.2); Carbon Dioxide 24 mmol/L (22-32); Chloride 106 mmol/L (98-107); Cholesterol 232 mg/dL (140-199); Estimated Glomerular Filt Rate > 60 mL/min (>60); Globulin 3.2 g/dL (1.7-4.1); Glucose 92 mg/dL (80-110); HDL Cholesterol 85 mg/dL (40-60); HEMOLYSIS < 15 (0-50); LDL Cholesterol Calculated 126 mg/dL (<100); Sodium 140 mmol/L (137-145); Total Protein 7.4 g/dL (6.3-8.2); Triglycerides 103 mg/dL (35-150)
[2023-05-21 16:45] LABS: Microalbumin Urine Random 4.6 mg/dL (0-1.6)
[2023-05-21 16:46] LABS: Creatinine Urine Random 220.2 mg/dL; Microalbumi Creatinin Ratio Ur 20.8 ug/mg CR (<30)
== END ==
PROVIDERS: PCP Nurse Practitioner Family; Referring Provider Nurse Practitioner Family; Visit Provider Nurse Practitioner Family
DX: I10 Essential (primary) hypertension (principal)
CPT/HCPCS: 36415; 80053; 80061; 82043; 82570; 85025

== ENCOUNTER → 2023-05-22 08:24 | Outpatient (CLI) | payer MEDICARE, MEDICAID, SELFPAY ==
[2023-05-24 17:18] LABS: Hemoglobin A1C% w Est Avg Glu 5.6 % (4.0-6.0)
[2023-05-24 17:47] LABS: TSH w/ Reflex to FT4 0.75 uIU/mL (0.47-4.68)
== END ==
PROVIDERS: PCP Nurse Practitioner Family; Visit Provider Nurse Practitioner Family
DX: I10 Essential (primary) hypertension (principal)
CPT/HCPCS: 83036; 84443

== ENCOUNTER → 2023-06-18 13:18 | Outpatient (CLI) | payer MEDICARE, MEDICAID, SELFPAY ==
[2023-06-18 15:21] LABS: Alanine Aminotransferase 16 IU/L (<35); Albumin 4.4 g/dL (3.5-5.0); Albumin Globulin Ratio 1.5 (1.0-2.8); Alkaline Phosphatase 113 U/L (38-126); Aspartate Aminotransferase 21 IU/L (14-36); Bilirubin Total 0.8 mg/dL (0.2-1.3); Blood Urea Nitrogen 23 mg/dL (7-17); Calcium 9.8 mg/dL (8.4-10.2); Carbon Dioxide 28 mmol/L (22-32); Chloride 102 mmol/L (98-107); Estimated Glomerular Filt Rate > 60 mL/min (>60); Globulin 2.9 g/dL (1.7-4.1); Glucose 100 mg/dL (80-110); HEMOLYSIS < 15 (0-50); Potassium 3.8 mmol/L (3.4-5.1); Sodium 139 mmol/L (137-145); Total Protein 7.3 g/dL (6.3-8.2)
== END ==
PROVIDERS: PCP Nurse Practitioner Family; Referring Provider Nurse Practitioner Family; Visit Provider Nurse Practitioner Family
DX: I10 Essential (primary) hypertension (principal)
CPT/HCPCS: 36415; 80053